=== PATIENT | female | born 1975 | race American Indian/Alaskan Native ===

== ENCOUNTER 2017-02-23 21:03 | Emergency (ER) | payer OTHER, MEDICAID ==
[2017-02-24] MEDS ORDERED: TORADOL IM ONE (00:26)
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
[2017-02-24 00:55] VITALS: BP 141/91
== END 2017-02-24 01:18 | disposition home or self-care (01) ==
LOC: ED 21:03
DX: S46.812A Strain of other muscles, fascia and tendons at shoulder and upper arm level, left arm, initial encounter (principal); I10 Essential (primary) hypertension; Z90.711 Acquired absence of uterus with remaining cervical stump; V49.50XA Passenger injured in collision with unspecified motor vehicles in traffic accident, initial encounter; Y93.89 Activity, other specified; Y99.8 Other external cause status; Y92.89 Other specified places as the place of occurrence of the external cause
CPT/HCPCS: 96372; 99282; J1885

== ENCOUNTER 2017-07-19 12:32 | Emergency (ER) | payer MEDICAID, OTHER ==
[2017-07-19 12:39] VITALS: BP 150/80
[2017-07-19 14:01] LABS: Anion Gap 21 mmol/L; Basophils % (Auto) 1.1 % (0.0-1.8); Blood Urea Nitrogen 12 mg/dL (7-17); Calcium 9.4 mg/dL (8.4-10.2); Carbon Dioxide 19 mmol/L (22-30); Chloride 100.8 mmol/L (98-107); Eosinophils % (Auto) 1.1 % (0.0-4.3); Glucose 79 mg/dL (65-100); Hematocrit 42.2 % (30.3-42.9); Hemoglobin 14.3 gm/dl (10.1-14.3); Mean Corpuscular HGB Conc 34 % (30-34); Mean Corpuscular Hemoglobin 29 pg (28-32); Mean Corpuscular Volume 87 fl (79-97); Platelet Count 319 K/mm3 (140-440); Potassium 4.6 mmol/L (3.6-5.0); Red Blood Count 4.85 M/mm3 (3.65-5.03); Red Cell Distribution Width 14.7 % (13.2-15.2); Sodium 136 mmol/L (137-145); White Blood Count 9.9 K/mm3 (4.5-11.0)
[2017-07-19 14:10] LABS: INR 0.95 (0.87-1.13); Partial Thromboplastin Time 32.2 Sec. (24.2-36.6)
== END 2017-07-19 14:26 | disposition left against medical advice (07) ==
LOC: ED 12:32
DX: R20.0 Anesthesia of skin (principal); Z53.21 Procedure and treatment not carried out due to patient leaving prior to being seen by health care provider
CPT/HCPCS: 36415; 80048; 84484; 85025; 85610; 85730; 93005; 93010

== ENCOUNTER 2018-02-10 17:47 | Emergency (ER) | payer SELFPAY ==
[2018-02-10] MEDS ORDERED: NORCO 5/325 PO ONE ×2 (20:56→22:15)
[2018-02-10] MEDS ORDERED: ZOFRAN ODT PO ONE (20:57)
[2018-02-10 21:13] LABS: Bacteria,Urine 1+ /HPF (Negative); Bilirubin,Urine NEG (Negative); Blood,Urine NEG (Negative); Color,Urine Yellow (Yellow); HCG Qualitative,Urine Negative (Negative); Mucus,Urine FEW /HPF; Protein,Urine <15 mg/dL mg/dL (Negative); Urobilinogen,Urine < 2.0 mg/dL (<2.0)
--- NOTE | 2018-02-10 21:58 | XRay Report ---
FINAL REPORT EXAM: XR SPINE LUMBOSACRAL 2-3V HISTORY: lower back pain COMPARISON: None available. FINDINGS: Three views of the lumbar spine obtained. Lumbar vertebral body heights are preserved. Mild loss of disc height L5-S1 level. Remaining disc heights are preserved. Pedicles are intact. No spondylolisthesis. Minimal levoconvex curvature of the lumbar spine which may be positional. IMPRESSION: Mild focal degenerative changes at the L5-S1 level. Lumbar vertebral body heights are preserved.
--- NOTE | 2018-02-10 22:34 | Emergency Department Report ---
ED Back Pain/Injury HPI - General Chief Complaint: Back Pain/Injury Stated Complaint: BACK PAIN BURNING Source: patient Limitations: No Limitations - History of Present Illness Initial Comments: 42-year-old female past medical history cardiomyopathy, hypertension, hyperlipidemia, prior drug use, partial hysterectomy, left rotator cuff surgery presents with complaint of lower back pain since earlier today. As per patient she was doing her laundry and bent down to apple picker a laundry basket and felt sharp pain in her lower back. Pain has been radiating down her right buttock since earlier today. Patient is ambulatory but states that she is feeling pain when she walks. Denies any bladder or bowel incontinence. Patient denies any current paresthesias. Primarily complaining of lower back pain which intermittently radiates to right upper buttock/thigh. Patient accompanied by family member at bedside. States she took Motrin at home with minimal relief of her pain. States pain is currently a 9 out of 10. Denies any recent falls or direct trauma to lower back. Patient states pain has been persistent since earlier this morning. MD Complaint: back pain -: This morning Place: home Radiation: buttocks, right leg (right upper buttock) Severity: severe Severity scale (0 -10): 8 Quality: aching Consistency: intermittent Improves With: none Worsens With: none Context: while lifting - Related Data Home Medications Medication Instructions Recorded Confirmed Last Taken amLODIPine [Norvasc] 11/28/13 11/28/13 Unknown Previous Rx's Medication Instructions Recorded Last Taken Type Prednisone 20 mg PO QDAY #5 tablet 11/28/13 Unknown Rx methOCARBAMOL [Robaxin TAB] 500 mg PO BID #14 tab 02/24/17 Unknown Rx traMADol [Ultram 50 MG tab] 50 mg PO Q4HR PRN #24 tablet 02/24/17 Unknown Rx HYDROcodone/APAP 5-325 [Pike 1 each PO Q6HR PRN #12 tablet 02/10/18 Unknown Rx 5/325] Ondansetron [Zofran Odt] 4 mg PO Q8H PRN #10 tab.rapdis 02/10/18 Unknown Rx Allergies Allergy/AdvReac Type Severity Reaction Status Date / Time lisinopril Allergy Angioedema Verified 02/23/17 21:39 ED Review of Systems ROS: Stated complaint: BACK PAIN BURNING Other details as noted in HPI Constitutional: denies: chills, fever Eyes: denies: eye pain, eye discharge, vision change ENT: denies: ear pain, throat pain Respiratory: denies: cough, shortness of breath, wheezing Cardiovascular: denies: chest pain, palpitations Endocrine: no symptoms reported Gastrointestinal: denies: abdominal pain, nausea, diarrhea Genitourinary: denies: urgency, dysuria, discharge Musculoskeletal: back pain. denies: joint swelling, arthralgia Skin: denies: rash, lesions Neurological: denies: headache, weakness, paresthesias Psychiatric: denies: anxiety, depression Hematological/Lymphatic: denies: easy bleeding, easy bruising ED Past Medical Hx - Past Medical History Hx Hypertension: Yes Additional medical history: cardiomyopathy. high cholesterol. poss. NSTEMI ( "mild heart attack several years ago from drug use") - Social History Smoking Status: Current Every Day Smoker Substance Use Type: None - Medications Home Medications: Home Medications Medication Instructions Recorded Confirmed Last Taken Type Prednisone 20 mg PO QDAY #5 tablet 11/28/13 Unknown Rx amLODIPine [Norvasc] 11/28/13 11/28/13 Unknown History methOCARBAMOL [Robaxin TAB] 500 mg PO BID #14 tab 02/24/17 Unknown Rx traMADol [Ultram 50 MG tab] 50 mg PO Q4HR PRN #24 tablet 02/24/17 Unknown Rx HYDROcodone/APAP 5-325 [Pike 1 each PO Q6HR PRN #12 tablet 02/10/18 Unknown Rx 5/325] Ondansetron [Zofran Odt] 4 mg PO Q8H PRN #10 tab.rapdis 02/10/18 Unknown Rx ED Physical Exam - General Limitations: No Limitations General appearance: alert, in no apparent distress - Head Head exam: Present: atraumatic, normocephalic - Eye Eye exam: Present: normal appearance, PERRL, EOMI - ENT ENT exam: Present: mucous membranes moist - Neck Neck exam: Present: normal inspection - Respiratory Respiratory exam: Present: normal lung sounds bilaterally. Absent: respiratory distress - Cardiovascular Cardiovascular Exam: Present: regular rate, normal rhythm. Absent: systolic murmur, diastolic murmur, rubs, gallop - GI/Abdominal GI/Abdominal exam: Present: soft, normal bowel sounds - Extremities Exam Extremities exam: Present: normal inspection - Back Exam Back exam: Present: normal inspection, full ROM (range of motion intact, patient has some paraspinal L-spine discomfort on exam) - Expanded Back Exam Expanded Back exam: Present: normal rectal tone (patient has strong rectal tone on digital rectal exam, I was chaperoned by process control tech for this exam and patient's daughter at bedside) Back exam: Positive Straight Leg Raise: Right (positive SLR test at 30) - Neurological Exam Neurological exam: Present: alert, oriented X3, CN II-XII intact, normal gait - Psychiatric Psychiatric exam: Present: normal affect, normal mood - Skin Skin exam: Present: warm, dry, intact, normal color. Absent: rash ED Course Vital Signs 02/10/18 02/10/18 18:13 21:07 Temperature 97.4 F L Pulse Rate 88 Respiratory 20 18 Rate Blood Pressure 134/87 O2 Sat by Pulse 98 Oximetry ED Medical Decision Making - Medical Decision Making A/P: Lower back pain, lumbar radiculopathy, sciatica 1-patient has no clinical signs of cauda equina. She is ambulatory without assistance with good deep tendon reflexes in both ankles and knees. Strength 5 out of 5 bilateral lower extremities. Patient has good rectal tone on digital rectal exam, I perform this with patient's daughter and process control tech Ms. Elaine at bedside. X-ray shows some degenerative changes and L-spine region 2-as patient has history of cardiomyopathy we'll try to avoid NSAIDs as these can be associated with increased risk of adverse cardiac events. Short course Pike. 3-f/u with primary care orthopedics and neurosurgery, I will refer patient in discharge paperwork 4- I explained to patient that her clinical signs and symptoms are most consistent with sciatica or lumbar radiculopathy and educated her on the subject and provided with literature on the subject [email or web address]-[email or web address].aaos.org/en/diseases--conditions/ [email or web address] Patient has no clinical signs of cord compression. I advised her to return to the ED for any loss of bladder or bowel control saddle paresthesias inability to ambulate or loss of sensation in her extremities. Patient stated she understood my instructions. Patient's daughter at bedside for this discussion. Critical care attestation.: If time is entered above; I have spent that time in minutes in the direct care of this critically ill patient, excluding procedure time. ED Disposition Clinical Impression: Sciatica of right side Lower back pain Qualifiers: Chronicity: acute Back pain laterality: right Sciatica presence: with sciatica Sciatica laterality: sciatica of right side Qualified Code(s): M54.41 - Lumbago with sciatica, right side Disposition: TO HOME OR SELFCARE Is pt being admited?: No Does the pt Need Aspirin: No Condition: Stable Instructions: Sciatica (ED), Lumbar Radiculopathy (ED), Degenerative Disc Disease (ED) Prescriptions: HYDROcodone/APAP 5-325 [Pike 5/325] 1 each PO Q6HR PRN #12 tablet PRN Reason: Pain Ondansetron [Zofran Odt] 4 mg PO Q8H PRN #10 tab.rapdis PRN Reason: Nausea Referrals: MADHURI BHATT MD [Primary Care Provider] - 3-5 Days NIKOLE NASSAR MD [Staff Physician] - 3-5 Days [facility] [Provider Group] - 3-5 Days Time of Disposition: 22:47
[2018-02-10 23:35] VITALS: BP 138/88
== END 2018-02-10 22:55 | disposition home or self-care (01) ==
LOC: ED 17:47
DX: M54.41 Lumbago with sciatica, right side (principal); I42.9 Cardiomyopathy, unspecified; I10 Essential (primary) hypertension; E78.5 Hyperlipidemia, unspecified; F17.200 Nicotine dependence, unspecified, uncomplicated; Z90.711 Acquired absence of uterus with remaining cervical stump
CPT/HCPCS: 72100; 81001; 81025; 87086; 99284; Q0162

== ENCOUNTER 2019-11-15 12:49 | Outpatient (CLI) | payer MEDICAID ==
[2019-11-15 13:26] LABS: Hematocrit 43.1 % (30.3-42.9); Hemoglobin 14.3 gm/dl (10.1-14.3); Mean Corpuscular HGB Conc 33 % (30-34); Mean Corpuscular Volume 88 fl (79-97); Platelet Count 361 K/mm3 (140-440); Red Blood Count 4.92 M/mm3 (3.65-5.03); Red Cell Distribution Width 15.2 % (13.2-15.2)
--- NOTE | 2019-11-15 13:37 | XRay Report ---
CHEST 2 VIEWS INDICATION / CLINICAL INFORMATION: CHRONIC COUGH. COMPARISON: Chest x-ray 06/08/2012 FINDINGS: SUPPORT DEVICES: None. HEART / MEDIASTINUM: No significant abnormality. LUNGS / PLEURA: No significant pulmonary or pleural abnormality. No pneumothorax. ADDITIONAL FINDINGS: No significant additional findings. IMPRESSION: 1. No acute findings. Signer Name: Abel Nath MD Signed: 11/15/2019 1:32 PM Workstation Name: [id number]
[2019-11-15 13:42] LABS: Alanine Aminotransferase 12 units/L (7-56); Albumin 4.4 g/dL (3.9-5); BUN/Creatinine Ratio 19; Blood Urea Nitrogen 13 mg/dL (7-17); Calcium 9.6 mg/dL (8.4-10.2); Chol/HDL Ratio 4.36 %; HDL Cholesterol 44 mg/dL (40-59); Hemolysis Index 4; LDL Cholesterol,Direct 134 mg/dL (50-130)
== END 2019-11-15 12:50 | disposition home or self-care (01) ==
LOC: XRAY 12:49
PROVIDERS: ATTEND Internal Medicine
DX: R06.02 Shortness of breath (principal); R05 Cough; M62.838 Other muscle spasm
CPT/HCPCS: 36415; 71046; 80053; 80061; 82785; 84436; 84443; 85027